=== PATIENT | female | born 1970 | race Caucasian/White ===

== ENCOUNTER 2019-01-19 09:19 | Emergency (ER) | payer OTHER ==
[2019-01-19 09:50] VITALS: BP 112/74
--- NOTE | 2019-01-19 10:28 | UC ---
Ear Complaint HPI - HPI Summary HPI Summary: right ear is painful and throbing, left ear achy. Started 2 days ago. Pt also feeling dizzy. Throat scratchy but"nothing major". Tried drinking water this morning but unable to because ear pain was so bad. Pt has not eaten since yesterday morning..has no appetite. Pt doesn't feel feverish. No n/v, diarrhea - History of Current Complaint Chief Complaint: UCEar Stated Complaint: BI LAT EAR PAIN Time Seen by Provider: 01/19/19 10:02 Hx Obtained From: Patient ?: No Onset/Duration: Sudden Onset, Lasting Days Severity Initially: Moderate Severity Currently: Severe Pain Intensity: 8 Alleviating Factors: Nothing Associated Signs/Symptoms: Positive: Swelling @ - Allergies/Home Medications Allergies/Adverse Reactions: Allergies Allergy/AdvReac Type Severity Reaction Status Date / Time amoxicillin [From Augmentin] AdvReac Diarrhea Verified 01/19/19 09:51 clavulanic acid AdvReac Diarrhea Verified 01/19/19 09:51 [From Augmentin] Home Medications: Home Medications Benzonatate CAP* [Tessalon 100 MG CAP*] 100 mg PO TID PRN 01/19/19 [History Confirmed 01/19/19] Budesonide/Formote 80/4.5(NF) [Symbicort 80/4.5 (NF)] 1 puff INH BID 01/19/19 [ History Confirmed 01/19/19] Calcium Carbonate/Vitamin D3 [Calcium 600-Vit D3 400 Tablet] 1 each PO DAILY [History Confirmed 01/19/19] Calcium No.1/D3/B6/FA/B12/Aloe [D 1000 Plus Aloe] 1,500 tab PO WEEKLY 01/19/19 [ History Confirmed 01/19/19] Cetirizine* [ZyrTEC 10 MG TAB*] 10 mg PO DAILY 01/19/19 [History Confirmed 01/19] Cyanocobalamin TAB* [Vitamin B12 TAB*] 1,500 mcg PO DAILY 01/19/19 [History Confirmed 01/19/19] Hydrocodone/Acetaminophen [Hydrocodone/Acetaminophen 10-325 mg] 1 tab PO Q12H PRN 01/19/19 [History Confirmed 01/19/19] Loratadine 10 mg PO DAILY 01/19/19 [History Confirmed 01/19/19] Montelukast Sodium TAB* [Singulair TAB*] 10 mg PO DAILY 01/19/19 [History Confirmed 01/19/19] Multivitamin with Iron [Multivitamins with Iron] 1 each PO DAILY 01/19/19 [ History Confirmed 01/19/19] Ondansetron ODT TAB* [Zofran 4 MG Odt TAB*] 4 mg PO Q6H PRN 01/19/19 [History Confirmed 01/19/19] Pregabalin CAP(*) [Lyrica CAP(*)] 150 mg PO BID 01/19/19 [History Confirmed ] Simethicone 150 mg PO Q6H PRN 01/19/19 [History Confirmed 01/19/19] oxyCODONE SR TAB(*) [Oxycontin 10 mg (*)] 10 mg PO Q12HR PRN 01/19/19 [History Confirmed 01/19/19] raNITIdine HCl [Ranitidine HCl] 150 mg PO DAILY 01/19/19 [History Confirmed ] PMH/Surg Hx/FS Hx/Imm Hx Previously Healthy: Yes Cardiovascular History: Cardiac Disease GI/ History: Other - gastric bypass - Surgical History Surgical History: Yes Surgery Procedure, Year, and Place: bypass surgery- 09/2016. carpal tunnel. nerve release left elbow. choley. L knee scope - Social History Alcohol Use: None Substance Use Type: None Smoking Status (MU): Never Smoked Tobacco Review of Systems All Other Systems Reviewed And Are Negative: Yes Constitutional: Positive: Negative Skin: Positive: Other - red ear Eyes: Positive: Negative ENT: Positive: Ear Ache Respiratory: Positive: Negative Cardiovascular: Positive: Negative Gastrointestinal: Positive: Negative Genitourinary: Positive: Negative Motor: Positive: Negative Neurovascular: Positive: Negative Musculoskeletal: Positive: Negative Neurological: Positive: Negative Psychological: Positive: Negative Is Patient Immunocompromised?: No Physical Exam Triage Information Reviewed: Yes Appearance: Well-Appearing, Well-Nourished, Pain Distress Vital Signs: Initial Vital Signs Temp 99.2 F 01/19/19 09:41 Pulse 71 01/19/19 09:41 Resp 18 01/19/19 09:41 BP 112/74 01/19/19 09:41 Pulse Ox 100 01/19/19 09:41 Vital Signs Reviewed: Yes Eye Exam: Normal ENT: Positive: Pharynx normal, TM dull - bilaterally, Other - right outter ear small laceration that has scabbed over is noted, erythema and mild swelling present. very painful to touch, Dental Exam: Normal Neck: Positive: Supple, Nontender, Enlarged Nodes @ - behind right ear Respiratory Exam: Normal Cardiovascular Exam: Normal Abdominal Exam: Normal Bowel Sounds: Positive: Present Musculoskeletal Exam: Normal Neurological Exam: Normal Psychological Exam: Normal Skin Exam: Normal Ear Complaint Course/Dx - Course Course Of Treatment: hx obtained, exam performed ,meds reviewed, treated for pericondritis and recommend follow up - Differential Dx/Diagnosis Differential Diagnosis/HQI/PQRI: Cellulitis, Otitis Externa, Otitis Media, Perforated TM Provider Diagnosis: Perichondritis and chondritis of right pinna Discharge - Sign-Out/Discharge Documenting (check all that apply): Patient Departure All imaging exams completed and their final reports reviewed: No Studies - Discharge Plan Condition: Stable Disposition: HOME Prescriptions: Clindamycin Cap(NF) [Clindamycin Cap 300 mg Cap(NF)] 300 mg PO TID #21 cap Patient Education Materials: Cellulitis (DC) Referrals: Janki Truong MD [Primary Care Provider] - Additional Instructions: 1. take the medication as prescribed. 2. Warm compresses hourly for the next 2 days 3. Follow up with Dr Truong or your ENT if not improving in the next 2 days 4. TYlenol for pain 5. take the medication with small amount of food. - Billing Disposition and Condition Condition: STABLE Disposition: Home - Attestation Statements Provider Attestation: I was available for consult. This patient was seen by the [facility]. The patient was not presented to, seen by, or examined by me. -[place]
== END 2019-01-19 10:31 | disposition home or self-care (01) ==
LOC: UCCORT 09:19
DX: H61.001 Unspecified perichondritis of right external ear (principal); H61.031 Chondritis of right external ear; H92.02 Otalgia, left ear; S01.311A Laceration without foreign body of right ear, initial encounter; R09.89 Other specified symptoms and signs involving the circulatory and respiratory systems; Z88.0 Allergy status to penicillin; X58.XXXA Exposure to other specified factors, initial encounter; Y92.9 Unspecified place or not applicable
CPT/HCPCS: 99202; G0463